=== PATIENT | male | born 1980 | race Caucasian/White ===

== ENCOUNTER 2020-07-05 11:58 | Outpatient (REF) | payer OTHER, SELFPAY ==
[2020-07-05 13:38] LABS: MANUAL DIFF FLAG NO
[2020-07-05 14:00] LABS: Basophils Percent Auto 0.5 % (0-2); Hemoglobin 15.1 g/dl (14.0-18.0); Imm Gran Abs Auto 0.01 X10*3/uL (0.00-0.03); Imm Gran Pct Auto 0.3 % (0.0-0.4); Lymphocytes Absolute Auto 1.4 X10*3/uL (1.2-4.9); Lymphocytes Percent Auto 35.9 % (20-40); Mean Corpuscular HGB Conc 32.8 g/dl (31.0-36.0); Mean Corpuscular Hemoglobin 30.4 pg (27.0-33.0); Mean Corpuscular Volume 92.6 fL (80-98); Monocytes Absolute Auto 0.3 X10*3/uL (0.1-1.2); Monocytes Percent Auto 8.1 % (2-11); Neutrophils Absolute Auto 2.2 X10*3/uL (2.0-8.3); Neutrophils Percent Auto 54.2 % (45-73); Platelet Count 242 X10*3/uL (160-400); Red Blood Count 4.97 X10*6/uL (4.60-5.80)
[2020-07-05 14:09] LABS: Anion Gap 13 (12-20); Blood Urea Nitrogen 12 mg/dL (9-16); Calcium 9.5 mg/dL (8.4-10.2); Carbon Dioxide 29 mmol/L (22-29); Chloride 104 mmol/L (96-108); Estimated Glomerular Filt Rate > 60; Glucose Random 82 mg/dL (60-115); Potassium 4.4 mmol/L (3.3-5.1); Sodium 142 mmol/L (135-145)
[2020-07-06 07:02] LABS: Lyme Abs Screen <0.90 index
== END 2020-07-05 11:59 | disposition home or self-care (01) ==
LOC: HO.10HDL 11:58
PROVIDERS: Visit Provider Internal Medicine
DX: R21 Rash and other nonspecific skin eruption (principal)
CPT/HCPCS: 36415; 80048; 85025; 86618

== ENCOUNTER 2022-01-21 07:31 | Outpatient (REF) | payer OTHER, SELFPAY ==
[2022-01-21 11:20] LABS: MANUAL DIFF FLAG NO
[2022-01-21 11:26] LABS: Basophils Percent Auto 0.8 % (0-2); Eosinophils Absolute Auto 0.1 X10*3/uL (0.0-0.4); Eosinophils Percent Auto 2.3 % (0-4); Hematocrit 44.1 % (42.0-52.0); Hemoglobin 14.7 g/dl (14.0-18.0); Lymphocytes Absolute Auto 1.5 X10*3/uL (1.2-4.9); Lymphocytes Percent Auto 38.6 % (20-40); Mean Corpuscular HGB Conc 33.3 g/dl (31.0-36.0); Mean Corpuscular Hemoglobin 30.6 pg (27.0-33.0); Mean Corpuscular Volume 91.9 fL (80.0-98.0); Mean Platelet Volume 11.3 fL (9.4-12.4); Monocytes Absolute Auto 0.4 X10*3/uL (0.1-1.2); Monocytes Percent Auto 9.3 % (2-11); Neutrophils Absolute Auto 1.9 x10*3/uL (2.0-8.3); Platelet Count 230 X10*3/uL (160-400)
[2022-01-21 11:56] LABS: Alanine Aminotransferase 10 U/L (0-40); Albumin Level 4.5 g/dL (3.5-5.0); Alkaline Phosphatase 47 U/L (39-117); Anion Gap 15 (12-20); Aspartate Amino Transferase 18 U/L (5-37); Bilirubin Total 0.8 mg/dL (0.0-1.0); Blood Urea Nitrogen 7 mg/dL (9-16); Calcium 9.3 mg/dL (8.4-10.2); Carbon Dioxide 26 mmol/L (22-29); Chloride 106 mmol/L (96-108); Cholesterol 170 mg/dL; Estimated Glomerular Filt Rate > 60; Glucose Fasting 85 mg/dL (60-99); HDL Cholesterol 66 mg/dL; LDL Cholesterol Calculated 90 mg/dl; Potassium 4.4 mmol/L (3.3-5.1); Sodium 143 mmol/L (135-145); Triglycerides 70 mg/dL
== END 2022-01-21 07:32 | disposition home or self-care (01) ==
LOC: HO.10HDL 07:31
PROVIDERS: Visit Provider Internal Medicine
DX: Z00.00 Encounter for general adult medical examination without abnormal findings (principal)
CPT/HCPCS: 36415; 80053; 80061; 85025

== ENCOUNTER 2023-02-03 16:52 | Emergency (ER) | payer OTHER, SELFPAY ==
[2023-02-03 16:58] VITALS: BP 111/89; PULSE 81; RESP 15; TEMP 35.9; O2SAT 100; BMI 24.9
--- NOTE | 2023-02-03 17:03 | ED_ITS ---
HPI - Extremity Injury (Upper) General Chief Complaint: Wound/Laceration Stated Complaint: L thumb laceration Time Seen by Provider: 02/03/23 19:16 Source: patient, RN notes reviewed and old records reviewed Mode of arrival: ambulatory Limitations: no limitations History of Present Illness HPI narrative: 42-year-old male presents for evaluation of a laceration to his left thumb He reports that he was carving pumpkins when he accidentally cut his left thumb with a knife He has a small laceration to the outside of his left thumb. Bleeding is controlled in triage He is not on any anticoagulation No other complaints or concerns at this time He reports that he had a physical recently and was told by his primary doctor that his tetanus is up-to-date Related Data Allergies Allergy/AdvReac Type Severity Reaction Status Date / Time bee pollen [BEE STINGS] Allergy Intermediate SWELLING Unverified 12/22/19 14:52 Review of Systems Integumentary/Breasts: Skin/Breast: Reports wounds PMFSH Social History Social History Advance Directives: No Advance Directives Information Provided: No Physical Exam Vital Signs: Vital Signs: Last Vital Signs Temp 96.7 F L 02/03/23 16:58 Pulse 81 02/03/23 16:58 Resp 15 02/03/23 16:58 BP 111/89 02/03/23 16:58 Pulse Ox 100 02/03/23 16:58 O2 Del Method Room Air 02/03/23 16:58 BMI result Body Mass Index 24.9 Skin: Other: Patient has a 2.5 cm linear full-thickness laceration to the radial side of the left thumb adjacent to the nail bed. 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 Tetanus believed to be UTD 1.5cm linear laceration noted to L thumb, distal aspect. bleeding. Will need suture repair Full HPI, ROS and PE to be performed by primary ED provider. Medications Administered Discontinued Medications Generic Name Dose Route Start Last Admin Trade Name Freq PRN Reason Stop Dose Admin Lidocaine HCl 5 ml 02/03/23 19:24 02/03/23 19:31 Lidocaine Hcl 1 % Mpf 5 Ml Vial INFILTRATI 02/03/23 19:25 5 ml ONCE ONE Administration Medical Decision Making Medical Decision Making MDM Narrative: 42-year-old male presents for evaluation left some laceration. See procedure note. Differential Diagnosis Differential Diagnoses: The differential diagnosis associated with the presentation includes Laceration Skin tear Puncture wound Acute wound Procedures Laceration Laceration 1: Site: hand (Left thumb) Side (If applicable): left Size (cm): 2.5 Description: linear Depth: simple, single layer Local Anesthetic: lidocaine 1% (Digital block) Amount of anesthesia used (mL): 5 Skin layer closed with: nylon Size (cm): 5-0 Number of sutures: 4 Technique: simple, interrupted Discharge Plan Discharge Clinical Impression: Laceration of left thumb Patient Disposition: Home, Self-Care Instructions: Finger Laceration (ED) Additional Instructions: You had 4 sutures placed today. These can be removed in 7-10 days Keep the area clean and dry You may apply topical antibiotic
[2023-02-03] MEDS: Lidocaine HCl 1 % MPF 5 ML VIAL INFILTRATI (19:31)
== END 2023-02-03 20:18 | disposition home or self-care (01) ==
PROVIDERS: Emergency Provider Student in an Organized Health Care Education/Training Program; PCP Internal Medicine
DX: S61.012A Laceration without foreign body of left thumb without damage to nail, initial encounter (principal); W26.0XXA Contact with knife, initial encounter; Y93.89 Activity, other specified; Y92.9 Unspecified place or not applicable; Y99.9 Unspecified external cause status
CPT/HCPCS: 12001; 99282; 99284

== ENCOUNTER 2023-07-23 11:45 | Outpatient (REF) | payer OTHER, SELFPAY ==
[2023-07-24 10:34] LABS: Lyme Abs Screen <0.90 index
== END 2023-07-23 11:46 | disposition home or self-care (01) ==
LOC: HO.10HDL 11:45
PROVIDERS: Visit Provider Internal Medicine
DX: T14.8XXD Other injury of unspecified body region, subsequent encounter (principal); W57.XXXD Bitten or stung by nonvenomous insect and other nonvenomous arthropods, subsequent encounter
CPT/HCPCS: 36415; 86617; 86618

== ENCOUNTER 2024-01-15 06:48 | Outpatient (REF) | payer BC, SELFPAY ==
[2024-01-15 07:03] LABS: MANUAL DIFF FLAG NO
[2024-01-15 07:36] LABS: Basophils Percent Auto 0.7 % (0-2); Eosinophils Absolute Auto 0.1 X10*3/uL (0.0-0.4); Eosinophils Percent Auto 2.4 % (0-4); Hematocrit 44.3 % (42.0-52.0); Hemoglobin 15.2 g/dl (14.0-18.0); Imm Gran Abs Auto 0.01 X10*3/uL (0.00-0.03); Imm Gran Pct Auto 0.2 % (0.0-0.4); Lymphocytes Absolute Auto 1.9 X10*3/uL (1.2-4.9); Lymphocytes Percent Auto 40.9 % (20-40); Mean Corpuscular HGB Conc 34.3 g/dl (31.0-36.0); Mean Corpuscular Hemoglobin 31.3 pg (27.0-33.0); Mean Corpuscular Volume 91.3 fL (80.0-98.0); Mean Platelet Volume 10.6 fL (9.4-12.4); Monocytes Absolute Auto 0.4 X10*3/uL (0.1-1.2); Monocytes Percent Auto 9.2 % (2-11); Neutrophils Absolute Auto 2.1 x10*3/uL (2.0-8.3); Neutrophils Percent Auto 46.6 % (45-73); Platelet Count 214 X10*3/uL (160-400); Red Blood Count 4.85 X10*6/uL (4.60-5.80); Red Cell Distribution Width 12.2 % (11.0-16.0); White Blood Count 4.6 X10*3/uL (4.8-10.8)
[2024-01-15 08:15] LABS: Alanine Aminotransferase 20 U/L (0-40); Albumin Level 4.6 g/dL (3.5-5.0); Alkaline Phosphatase 52 U/L (39-117); Anion Gap 10 (12-20); Aspartate Amino Transferase 20 U/L (5-37); Bilirubin Total 0.6 mg/dL (0.0-1.0); Blood Urea Nitrogen 9 mg/dL (9-16); Calcium 9.7 mg/dL (8.4-10.2); Carbon Dioxide 26 mmol/L (22-29); Chloride 108 mmol/L (96-108); Cholesterol 168 mg/dL (<200); Estimated Glomerular Filt Rate > 60; Glucose Fasting 89 mg/dL (60-99); HDL Cholesterol 63 mg/dL (>40); LDL Cholesterol Calculated 93 mg/dL (<100); Potassium 4.1 mmol/L (3.3-5.1); Sodium 140 mmol/L (135-145); Total Protein 7.2 g/dL (6.5-8.0); Triglycerides 60 mg/dL (<150)
== END 2024-01-15 06:49 | disposition home or self-care (01) ==
LOC: HO.LAB 06:48
PROVIDERS: PCP Internal Medicine; Visit Provider Internal Medicine
DX: Z00.00 Encounter for general adult medical examination without abnormal findings (principal)
CPT/HCPCS: 36415; 80053; 80061; 85025

== ENCOUNTER 2024-07-21 13:48 | Outpatient (AMB) | payer BC, SELFPAY ==
--- NOTE | 2024-07-21 13:55 | MHC.PC.OV ---
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 Last seen by PCP in Jan for CPE Presents today with knee pain. Left knee pain. Started in May after a day of snowboarding. Running or golfing increases the pain. When its in extension he is prone to feeling the pain on mistep. Hurts with eversion. Has taken ibuprofen with little help. ROS see HPI PHYSICAL EXAM: GENERAL: Alert and oriented x 3. NAD EYES: EOMI. Anicteric. HENT: Moist mucous membranes. No scleral icterus. No cervical lymphadenopathy. LUNGS: Clear to auscultation bilaterally. CARDIOVASCULAR: Regular rate and rhythm. No murmur. No JVD. ABDOMEN: Soft, non-tender +bs EXTREMITIES: No edema. Non-tender. MSK: Left knee normal appearance, no crepitus. Pain medial knee with foot eversion SKIN: No rashes or lesions. Warm. NEUROLOGIC: No focal neurological deficits. CN II-XII grossly intact PSYCHIATRIC: Cooperative. Appropriate mood and affect [facility] Family History Father No problems noted. Mother No problems noted. Social History Housing: House Alcohol intake: current Alcohol intake frequency: a few times a week Patient Tobacco Use Status: Never used Tobacco service: No Current occupational status: employed Cognitive needs: No Hearing needs: No Vision needs: Yes (rx glasses) Questionnaire PHQ-9 Over the last 2 weeks, how often have you been bothered by any of the following problems? 1. Little interest or pleasure in doing things: not at all 2. Feeling down, depressed, or hopeless: not at all 3. Trouble falling or staying asleep, or sleeping too much: not at all 4. Feeling tired or having little energy: not at all 5. Poor appetite or overeating: not at all 6. Feeling bad about yourself - or that you are a failure or have let yourself or your family down: not at all 7. Trouble concentrating on things, such as reading the newspaper or watching television: not at all 8. Moving or speaking so slowly that other people could have noticed. Or the opposite - being so fidgety or restless that you have been moving around a lot more than usual: not at all 9. Thoughts that you would be better off or of hurting yourself in some way: not at all Total score: 0 Source: Developed by Drs. Burak Tena, Rose Bentley, Stefano Escamilla and colleagues, with an educational amanda from [employer]. Thrive Questionnaire Date Thrive assessed: 07/21/24 I am a: Patient What is your living situation today?: I have a steady place to live Within the past 12 months, did the food you bought not last and you didn't have the money to get more?: Never true Within the past 12 months, did you worry whether your food would run out before you got money to buy more?: Never true Do you have trouble paying for medicines?: No Do you have trouble getting transportation to medical appointments?: No Do you have trouble paying your heating and electricity bill?: No Do you have trouble taking care of your child, family member or friend?: No Do you have trouble with day-to-day activities such as bathing, preparing meals, shopping, managing finances, etc.?: No Are you currently unemployed and looking for a job?: No Are you interested in more education?: No Please select the resources that you would like help with: None THRIVE Score: 0 AUDIT C Alcohol Use Questionnaire (AUDIT-C) 1. How often do you have a drink containing alcohol?: 2-3 times a week 2. How many drinks containing alcohol do you have on a typical day when you are drinking?: 1 or 2 3. How often do you have six or more drinks on one occasion?: Never Total Score: 3 DREA-7 AMB Questionnaire DREA-7 Date DREA - 7 assessed: 07/21/24 Feeling nervous, anxious, or on edge: 0 = Not at all Not being able to stop or control worryin = Not at all Worrying too much about different things: 0 = Not at all Trouble relaxin = Not at all Being so restless that it is hard to sit still: 0 = Not at all Becoming easily annoyed or irritable: 0 = Not at all Feeling afraid as if something awful might happen: 0 = Not at all Total DREA-7 score (0-4 normal; 5-9 mild; 10-14 moderate; 15-21 severe): 0 Source: Developed by Drs. Burak Tena, Rose Bentley, Stefano Escamilla and colleagues, with an educational amanda from [employer]. Physical exam (Primary Care) Vital Signs: Last Vital Signs Temp 97.7 F 07/21/24 13:58 Pulse 84 07/21/24 13:58 Resp 14 07/21/24 13:58 BP 122/68 07/21/24 13:58 Pulse Ox 99 07/21/24 13:58 Oxygen Delivery Method Room Air 07/21/24 13:58 BMI result Body Mass Index 24.2 Tobacco/Smoking Status: Tobacco use Status Tobacco use date assessed 07/21/24 07/21/24 13:58 Patient Tobacco Use Status Never used Tobacco 07/21/24 14:02 PHQ-9: PHQ-9 Score PHQ-9: Total score 0 07/21/24 14:11 Thrive Assessment: Date of Thrive Assessment Date Thrive assessed 07/21/24 07/21/24 13:58 Coding Level of Care Code New Pt Level 3 (68362) Diagnoses Acute pain of left knee M25.562 Chronicity: acute Assessment & Plan Assessment & Plan (1) Left knee pain: Code(s): M25.562 - Pain in left knee Category: Medical Qualifiers: Chronicity: acute Qualified Code(s): M25.562 - Pain in left knee Plan Concern for MCL tear XR ordered referral to PT orthopedics. OTC analgesics prn Orders: Orders XR knee LT 2V 07/21/24 M25.562 - Pain in left knee XR knee LT 3V 07/21/24 M25.562 - Pain in left knee PT Evaluation and Treatment 07/21/24 M25.562 - Pain in left knee Referrals Orthopedics Referral M25.562 - Pain in left knee
[2024-07-21 13:58] VITALS: BP 122/68; PULSE 84; RESP 14; TEMP 36.5; O2SAT 99; BMI 24.2
== END 2024-07-21 14:20 | disposition home or self-care (01) ==
LOC: HO.HMCHD 13:49
PROVIDERS: PCP Internal Medicine; Visit Provider Internal Medicine
DX: M25.562 Pain in left knee (principal)

== ENCOUNTER 2024-07-21 13:48 | Outpatient (REF) | payer BC, SELFPAY ==
--- NOTE | ~2024-07-21 | XR_ITS ---
CLINICAL HISTORY: M25.562 - Pain in left knee 3 view left knee Comparison: None Findings: Bones intact. No dislocations. No significant loss of joint space, osteophytes, or erosions. No joint effusion. No radiopaque foreign body. IMPRESSION: 1. No acute findings. This document has been electronically signed by: Shaheed Gresham MD on 07/23/2024 08:52:08
== END 2024-07-21 13:49 | disposition home or self-care (01) ==
LOC: HO.XRAY 13:48
PROVIDERS: PCP Internal Medicine; Visit Provider Internal Medicine
DX: M25.562 Pain in left knee (principal)
CPT/HCPCS: 73562

== ENCOUNTER → 2024-07-21 14:26 | Outpatient (BNV) | payer BC, SELFPAY | PROVIDERS: PCP Internal Medicine; Visit Provider Specialist | DX: M25.562 Pain in left knee (principal) | CPT/HCPCS: 73562 ==

== ENCOUNTER 2024-09-05 08:33 | Outpatient (REF) | payer BC, SELFPAY ==
--- NOTE | ~2024-09-05 | XR_ITS ---
EXAMINATION: XR KNEE AP STANDING CLINICAL INFORMATION: M25.562 - Pain in left knee COMPARISON: Left knee July 21, 2024 TECHNIQUE: AP bilateral standing view of the knees was obtained. FINDINGS: Left knee: Faint amorphous calcification is present in the joint line, more evident in the lateral compartment than medial compartment. There is subtle narrowing in the medial joint space. There are small marginal osteophytes along the medial joint line and the intercondylar tubercles are peaked. Similar to the prior. Right knee: There is faint amorphous calcification along the joint line, more evident in the lateral compartment. Small marginal osteophytes are present involving the medial tibial plateau. Intracondylar tubercles are peaked. Linear high density along the lateral metadiaphysis of the tibia is consistent with a linear type of bone island. XR/XR knee standing BI IMPRESSION: There are changes consistent with pyrophosphate deposition which can be related to CPPD arthropathy, hemochromatosis, and hyperparathyroidism. 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 Examination is limited to an AP view only without a lateral view. Electronically signed by: Cesar Alvarez MD 09/05/2024 11:32 AM EDT
== END 2024-09-05 08:34 | disposition home or self-care (01) ==
LOC: HO.HOSX 08:33
PROVIDERS: Visit Provider Physician Assistant
DX: M25.562 Pain in left knee (principal)
CPT/HCPCS: 73565

== ENCOUNTER 2024-09-05 08:55 | Outpatient (AMB) | payer BC, SELFPAY ==
--- NOTE | 2024-09-05 09:06 | A.OFFVIS_ITS ---
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 Patient reports ongoing pain for about 3 - 4 months. He states that his pain started back in May after a day of snowboarding. Also, Running and golfing which has been increasing his pain. When his knee is in extension he notice his pain worsen. He states that his pain is stable today, his pain is worse when he is running. Patient has taken ibuprofen with relief. IMPRESSION: 1. No acute findings. 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 Cooper is a 43 year old male who presents today as a new patient for a evaluation of his left knee pain. Patient reports ongoing pain for about 3 - 4 months. He states that his pain started back in May after snowboarding. He reports that the pain is located along the anterior aspect of the knee. He reports an increase in pain with twisting. This illicits a sharp pain and then after a while the pain diminishes. Running and golfing increases his pain. He also notes that with full extension of the knee his pain worsens. Patient has taken ibuprofen with relief. [facility] Family History Father No problems noted. Mother No problems noted. 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 No ecchymosis, erythema, or joint effusion. No tenderness to palpation along the medial or lateral joint lines. Full knee extension and flexion. Positive Vani's anterior lateral. Negative anterior drawer. NVI. Assessment & Plan Assessment & Plan (1) Left anterior knee pain: Code(s): M25.562 - Pain in left knee Category: Medical (2) Internal derangement of left knee: Code(s): M23.92 - Unspecified internal derangement of left knee Category: Medical Plan Mr. Cooper is a 43 year old male who presents today as a new patient for a evaluation of his left knee pain. Patient reports ongoing pain for about 3 - 4 months. He states that his pain started back in May after snowboarding. He reports that the pain is located along the anterior aspect of the knee. He reports an increase in pain with twisting. This illicits a sharp pain and then after a while the pain diminishes. Running and golfing increases his pain. He also notes that with full extension of the knee his pain worsens. Patient has taken ibuprofen with relief. While in the office today, I discussed with the patient about ordering an MRI to further evaluated the integrity of the left knee and surrounding structures. THe patient would like to move forward with this as well. HE will followup after the MRI is obtained, sooner if needed. X-rays of the left knee which were obtained while in the office today and were reviewed by me, Aileen Menendez PA-C, revealed no acute fracture or dislocation. Orders: Orders XR knee standing BI Today M25.562 - Pain in left knee MR knee LT wo con Today M25.562 - Pain in left knee Coding Level of Care Code New Pt Level 4 (65690) Diagnoses Left anterior knee pain M25.562 Internal derangement of left knee M23.92
[2024-09-05 09:23] VITALS: BMI 24.2
== END 2024-09-05 09:26 | disposition home or self-care (01) ==
LOC: HO.HOS 08:55
PROVIDERS: PCP Internal Medicine; Visit Provider Physician Assistant
DX: M25.562 Pain in left knee (principal); M23.92 Unspecified internal derangement of left knee
CPT/HCPCS: 99203

== ENCOUNTER → 2024-09-05 08:58 | Outpatient (BNV) | payer BC, SELFPAY | PROVIDERS: Visit Provider Radiology Diagnostic Radiology | DX: M17.12 Unilateral primary osteoarthritis, left knee (principal) | CPT/HCPCS: 73565 ==

== ENCOUNTER 2024-09-09 08:45 | Outpatient (REF) | payer BC, SELFPAY | END 2024-09-09 08:46 | disposition home or self-care (01) | LOC: HO.HOSX 08:45 | PROVIDERS: Visit Provider Physician Assistant | DX: Z13.89 Encounter for screening for other disorder (principal) ==

== ENCOUNTER 2024-11-09 09:53 | Outpatient (RCR) | payer BC, SELFPAY ==
--- NOTE | 2024-10-04 11:34 | MHC.PT.EP ---
[facility] [place] Office [place] Office [place] Office [address] Ann Vickers [address] [phone] F: [phone] F: [phone] F: [phone] F: [phone] Physical Therapy Plan of Care Date of Evaluation: 10/04/24 Date of Surgery: N/A Diagnosis: left anterior knee pain (RL) Assessment: pt is a 43 y/o male presenting to physical therapy w/ referring diagnosis of left anterior knee pain. His symptoms were only provoked w/ palpation to medial tibiofemoral joint line, valgus stress test, and running. I am suspicious of medial meniscal injury vs. pes anserine bursitis. Impairments include pain, decreased range of motion, decreased strength, impaired functional mobility, impaired postural awareness, and altered ambulation mechanics. pt is a good candidate for skilled PT due to age, potential remediation of impairments, typical disease/condition progression and prognosis, comorbidities, and motivation. pt would benefit from skilled PT intervention to provide a tailored strengthening and stretching exercise program, functional training, gait training, postural re-training, neuromuscular re-education, modalities as needed for pain, equipment safety demonstration. Frequency and Duration: The patient will be seen 1x/wk for 5 wks Short Term Goals: pt will be I w/ HEP to promote self-management of condition. pt will improve B ankle DF by at least 10* to reduce tibial external rotation during terminal stance phase. Skilled Nursing Goals: pt will report <2/10 L knee pain w/ running >2 miles to promote return to exercise for fitness and wellness. pt will demo symmetrical weight bearing functional squat to reduce genu valgus w/ picking up objects from the ground. Treatment Plan: Modalities to reduce pain, spasms and effusion. Manual therapy to restore motion and function. Therapeutic exercise to improve strength and flexibility. Neuromuscular re-education for posture and balance. Therapeutic activities to return to functional activities of daily living. Electronically signed by: Concha Murray PT, DPT Please sign and return to therapist. Thank you for your referral.
--- NOTE | 2024-11-23 11:32 | MHC.PT.DC ---
[facility] [place] Office [place] Office [place] Office [address] Ann Vickers 140 [facility] [phone] F: [phone] F: [phone] F: [phone] F: [phone] Physical Therapy Discharge Report Diagnosis: left anterior knee pain (RL) Date of Surgery: N/A Date of Evaluation: 10/04/24 Date of Discharge: 11/23/24 Treatments to Date: 8 Cancellations to Date: 0 No Shows to Date: 0 Discharge Status: Improved Function Independent with HEP Discharge Summary: The patient overall is reporting some improvement in knee pain. He is still limited with longer distance running. His pain does seem to plateau throughout his run and dissipates shortly after he stops to rest. At this time, he would like to pursue an MRI so we spent today reviewing his home exercise program. I reinforced the importance of sticking with these exercises if he wishes to remain active with running. He is discharged at this time. Electronically signed by: Concha Murray PT, DPT Please sign and return to therapist. Thank you for your referral.
== END 2024-11-23 11:33 | disposition home or self-care (01) ==
LOC: HO.PT 09:53
PROVIDERS: PCP Internal Medicine; Visit Provider Physician Assistant
DX: M23.92 Unspecified internal derangement of left knee (principal); M25.562 Pain in left knee
CPT/HCPCS: 97110; 97112; 97140; 97161; 97530

== ENCOUNTER 2024-12-22 10:15 | Outpatient (AMB) | payer BC, SELFPAY ==
--- NOTE | 2024-12-22 13:17 | MHC.OFFVIS ---
Intake Visit Reasons: OV left knee pain, possible MCL injury re-eval Intake Note: Patient presents to the office today for follow up of left knee pain. He has been attending physical therapy. Although, his pain has begun to subside some with physical therapy he continues to have some mechanical difficulties. Allergies bee pollen (BEE STINGS) Allergy (Intermediate, Verified 09/05/24 09:09) SWELLING HPI HPI OV left knee pain, possible MCL injury re-eval: Details: Patient presents to the office today for follow up of left knee pain. He has been attending physical therapy. Although, his pain has begun to subside some with physical therapy he continues to have some mechanical difficulties. [facility] Family History Father No problems noted. Mother No problems noted. 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 No ecchymosis, erythema, or joint effusion. No tenderness to palpation along the medial or lateral joint lines. Full knee extension and flexion. Positive Vani's anterior lateral. Negative anterior drawer. NVI. Assessment & Plan Assessment & Plan (1) Internal derangement of left knee: Code(s): M23.92 - Unspecified internal derangement of left knee Category: Medical Plan Patient presents to the office today for follow up of left knee pain. He has been attending physical therapy. Although, his pain has begun to subside some with physical therapy he continues to have some mechanical difficulties. While in the office today, we discussed the role of MRI imaging to be with the integrity of the knee and surrounding structures. The patient is amenable to this plan. Therefore, an MRI has been ordered. He will follow up with me after the MRIs obtained, sooner if needed. Orders: Orders MR knee LT wo con Today M23.92 - Unspecified internal derangement of left knee Coding Level of Care Code Est Pt Level 3 (95139) Diagnoses Internal derangement of left knee M23.92
== END 2024-12-22 12:33 | disposition home or self-care (01) ==
LOC: HO.HOS 10:15
PROVIDERS: PCP Internal Medicine; Visit Provider Physician Assistant
DX: M23.92 Unspecified internal derangement of left knee (principal)
CPT/HCPCS: 99213

== ENCOUNTER 2025-01-06 08:24 | Outpatient (AMB) | payer BC, SELFPAY ==
[2025-01-06 08:11] VITALS: BP 120/74; PULSE 68; TEMP 36.3; O2SAT 99; BMI 25.1
--- NOTE | 2025-01-06 08:11 | MHC.PC.OV ---
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 Accompanied by: Self / Same As Patient Allergies bee pollen (BEE STINGS) Allergy (Intermediate, Verified 01/06/25 08:11) SWELLING Medication List - Last Reconciled 01/06/25 by DEBRA Suarez No Known Home Meds Tobacco use date assessed: 01/06/25 Dental Screening Dental Screen Date: 01/06/25 Did you have a dental visit in the last 12 months?: Yes Did you have a dental problem in the last 6 months where you did not have access to dental care?: No HPI HPI Comments History of Present Illness Details 44-year-old male without any significant past medical history presents to the office today for annual physical exam. Lives in [place] with and two children. 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 Social alcohol. No cigarettes. No drugs including MJ. Exercises at the [facility] with cardio and weights. Healthy diet overall. Left knee pain-has been following with Orthopedic surgery. MRI is pending. He did complete physical therapy but did not have full resolution of symptoms. Concerns: None Health maintenance: Colonoscopy starting at age 45 Eye exam is [id number]-[id number]-check to be eye care Dental exams twice yearly Wear sunscreen Reviewed past medical, surgical, family, social history. ROS: General: No fevers, malaise, unintentional weight loss HEENT: No blurred vision, diplopia. No sore throat, nasal congestion, rhinorrhea, sinus pain, ear pain. No hearing loss Neck - no adenopathy Cardiovascular: No chest pain, palpitations, or leg edema Respiratory: No shortness of breath, wheezing, cough Breast: No pain, palpable lumps, nipple inversion GI: No dysphagia, odynophagia, globus sensation. No abdominal pain, nausea, vomiting, diarrhea, constipation, melena, hematochezia : No dysuria, hematuria, increased urinary frequency, decreased urinary output. 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 No AH/VH. No SI/HI Skin: No rashes or lesions EXAM: Constitutional - Awake and Alert, No apparent distress Eyes - PERRLA, EOMI. Anicteric Ears - external ears normal, canals clear, TMs intact and pearly jones with good cone of light Nose- septum midline, nares clear, no sinus tenderness Mouth/throat- mucosa moist, tongue and uvula midline, no erythema/edema or tonsillar adenopathy. Neck-trachea midline, thyroid symmetric without palpable nodules, no adenopathy Cardiovascular - S1S2, RRR, No edema Respiratory - Normal lung expansion, Normal respiratory effort, No respiratory distress, CTA bilaterally Gastrointestinal - NT / ND; +BS; No rebound or guarding - No CVA tenderness Extremities - no calf tenderness bilaterally, no swelling Musculoskeletal - Normal inspection, normal ROM Skin - Warm/Dry, no concerning lesions Neurological - Alert & oriented x3, CN II-XII in tact, 5/5 strength BUE and BLE, 2+ patellar reflexes, sensation intact Psychological - Appropriate affect PFSH Medical History (Updated 01/06/25 @ 08:50 by DEBRA Suarez) No pertinent past medical history Surgical History (Updated 01/06/25 @ 08:41 by DEBRA Suarez) S/P excision of varicocele Family History (Updated 01/06/25 @ 08:55 by DEBRA Suarez) Father No problems noted. Mother No problems noted. 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 1. Little interest or pleasure in doing things: not at all 2. Feeling down, depressed, or hopeless: not at all 3. Trouble falling or staying asleep, or sleeping too much: not at all 4. Feeling tired or having little energy: not at all 5. Poor appetite or overeating: not at all 6. Feeling bad about yourself - or that you are a failure or have let yourself or your family down: not at all 7. Trouble concentrating on things, such as reading the newspaper or watching television: not at all 8. Moving or speaking so slowly that other people could have noticed. Or the opposite - being so fidgety or restless that you have been moving around a lot more than usual: not at all 9. Thoughts that you would be better off or of hurting yourself in some way: not at all Total score: 0 Source: Developed by Drs. Burak Tena, Rose Bentley, Stefano Escamilla and colleagues, with an educational amanda from [employer]. Thrive Questionnaire Date Thrive assessed: 01/06/25 I am a: Patient Within the past 12 months, did the food you bought not last and you didn't have the money to get more?: Never true Within the past 12 months, did you worry whether your food would run out before you got money to buy more?: Never true Do you have trouble paying for medicines?: No Do you have trouble getting transportation to medical appointments?: No Do you have trouble paying your heating and electricity bill?: No Do you have trouble taking care of your child, family member or friend?: No Do you have trouble with day-to-day activities such as bathing, preparing meals, shopping, managing finances, etc.?: No Are you currently unemployed and looking for a job?: No Are you interested in more education?: No THRIVE Score: 0 AUDIT C Alcohol Use Questionnaire (AUDIT-C) 1. How often do you have a drink containing alcohol?: Monthly or less 2. How many drinks containing alcohol do you have on a typical day when you are drinking?: 1 or 2 3. How often do you have six or more drinks on one occasion?: Less than monthly Total Score: 2 DREA-7 AMB Questionnaire DREA-7 Date DREA - 7 assessed: 01/06/25 Feeling nervous, anxious, or on edge: 0 = Not at all Not being able to stop or control worryin = Not at all Worrying too much about different things: 0 = Not at all Trouble relaxin = Not at all Being so restless that it is hard to sit still: 0 = Not at all Becoming easily annoyed or irritable: 0 = Not at all Feeling afraid as if something awful might happen: 0 = Not at all Total DREA-7 score (0-4 normal; 5-9 mild; 10-14 moderate; 15-21 severe): 0 Source: Developed by Drs. Burak Tena, Rose Bentley, Stfeano Escamilla and colleagues, with an educational amanda from [employer]. Physical exam (Primary Care) Vital Signs: Last Vital Signs Temp 97.3 F 01/06/25 08:11 Pulse 68 01/06/25 08:11 BP 120/74 01/06/25 08:11 Pulse Ox 99 01/06/25 08:11 Oxygen Delivery Method Room Air 01/06/25 08:11 BMI result Body Mass Index 25.1 Tobacco/Smoking Status: Tobacco use Status Tobacco use date assessed 01/06/25 01/06/25 08:12 Patient Tobacco Use Status Never used Tobacco 01/06/25 08:12 e-Cigarette/Vaping Use Never Used 01/06/25 08:12 PHQ-9: PHQ-9 Score PHQ-9: Total score 0 01/06/25 08:37 Thrive Assessment: Date of Thrive Assessment Date Thrive assessed 01/06/25 01/06/25 08:12 Coding Level of Care Code Est Pt Prev Care 40-64y(73718) Diagnoses Routine medical exam Z00.00 Assessment & Plan Assessment & Plan (1) Routine medical exam: Code(s): Z00.00 - Encounter for general adult medical examination without abnormal findings Category: Medical Plan: 44-year-old male presenting for annual physical exam. Plan as below Plan Continue following with Orthopedic surgery for pain. Routine screening labs as ordered below Continue with screening colonoscopies and PSA Continue following for annual skin exams and use sun protection Annual eye exams Wear seat belt in car Recommend regular exercise and healthy diet Follow up in 1 year for physical Orders: Orders Lipid Panel Today Z00.00 - Encounter for general adult medical examination without abnormal findings Liver Panel Today Z00.00 - Encounter for general adult medical examination without abnormal findings Basic Metabolic Panel Today Z00.00 - Encounter for general adult medical examination without abnormal findings
== END 2025-01-06 08:54 | disposition home or self-care (01) ==
LOC: HO.HMCHD 08:24
PROVIDERS: PCP Internal Medicine; Visit Provider Physician Assistant
DX: Z00.00 Encounter for general adult medical examination without abnormal findings (principal)

== ENCOUNTER 2025-01-06 09:09 | Outpatient (REF) | payer BC, SELFPAY ==
[2025-01-06 10:59] LABS: Alanine Aminotransferase 27 U/L (0-40); Albumin Level 4.7 g/dL (3.5-5.0); Alkaline Phosphatase 50 U/L (39-117); Anion Gap 9 (12-20); Aspartate Amino Transferase 28 U/L (5-37); Blood Urea Nitrogen 13 mg/dL (9-16); Calcium 9.5 mg/dL (8.4-10.2); Carbon Dioxide 27 mmol/L (22-29); Chloride 107 mmol/L (96-108); Cholesterol 162 mg/dL (<200); Estimated Glomerular Filt Rate > 60; HDL Cholesterol 63 mg/dL (>40); Potassium 4.3 mmol/L (3.3-5.1); Sodium 139 mmol/L (135-145); Total Protein 6.8 g/dL (6.5-8.0); Triglycerides 92 mg/dL (<150)
== END 2025-01-06 09:10 | disposition home or self-care (01) ==
LOC: HO.10HDL 09:09
PROVIDERS: Visit Provider Physician Assistant
DX: Z00.00 Encounter for general adult medical examination without abnormal findings (principal); Z13.6 Encounter for screening for cardiovascular disorders
CPT/HCPCS: 36415; 80048; 80061; 80076

== ENCOUNTER 2025-02-06 07:10 | Outpatient (REF) | payer BC, SELFPAY ==
--- NOTE | ~2025-02-06 | MR_ITS ---
EXAMINATION: MR KNEE WITHOUT IV CONTRAST LEFT HISTORY: M23.92 - Unspecified internal derangement of left knee COMPARISON: Correlation is made with plain films of the left knee dated 09/05/2024. TECHNIQUE: Coronal T1 and fat-suppressed proton density, sagittal proton density and fat-suppressed proton density, and axial fat suppressed T2 weighted MR images of the left knee were obtained. FINDINGS: Bone marrow: Bone marrow signal intensity is normal. Joint effusion: There is a tiny joint effusion. Arevalo's cyst: There is no Arevalo's cyst. Articular cartilage: Intact Muscles/soft tissues: The visualized muscles demonstrate normal signal intensity. Anterior cruciate ligament: Intact Posterior cruciate ligament: Intact Medial collateral ligament: Intact Lateral collateral ligament: Intact Medial meniscus: There is a horizontally oriented focus of increased signal intensity in the posterior body and posterior horn of the medial meniscus. This contacts the inferior joint surface, consistent with a tear. There is also a probable small meniscal fragment displaced beneath the body of the medial meniscus. The anterior horn is intact. Lateral meniscus: Intact Flexor mechanism: The popliteus, gastrocnemius, and hamstring tendons are intact. Quadriceps tendon: Intact Patellar tendon: Intact Patellar retinacula: Intact MR/MR knee LT wo con IMPRESSION: Horizontal tear of the posterior body and posterior horn of the medial meniscus. Probable small meniscal fragment displaced beneath the body of the medial meniscus. Electronically signed by: Burak Nagel MD 02/06/2025 08:00 AM [facility]
== END 2025-02-06 07:11 | disposition home or self-care (01) ==
LOC: HO.MRI 07:10
PROVIDERS: PCP Internal Medicine; Visit Provider Physician Assistant
DX: M23.92 Unspecified internal derangement of left knee (principal)
CPT/HCPCS: 73721

== ENCOUNTER → 2025-02-06 07:10 | Outpatient (BNV) | payer BC, SELFPAY | PROVIDERS: PCP Internal Medicine; Visit Provider Radiology Diagnostic Radiology | DX: S83.242A Other tear of medial meniscus, current injury, left knee, initial encounter (principal) | CPT/HCPCS: 73721 ==

== ENCOUNTER 2025-03-21 08:51 | Outpatient (AMB) | payer BC, SELFPAY ==
--- NOTE | 2025-03-21 09:39 | A.OFFVIS_ITS ---
Intake Visit Reasons: OV-LT MRI review Intake Note: Jus is a 44 year old male who presents today for a MRI review of his left knee. Patient reports he is doing well, having mild pain. He notices some pressure in his knee after snow boarding. IMPRESSION: Horizontal tear of the posterior body and posterior horn of the medial meniscus. Probable small meniscal fragment displaced beneath the body of the medial meniscus. Allergies bee pollen (BEE STINGS) Allergy (Intermediate, Verified 03/21/25 09:44) SWELLING HPI Comments Details: History of Present Illness The patient is a 44 year old male presenting for follow-up of left knee discomfort. He reports that the knee feels fine with routine activities such as walking and running, but he notices a sensation of excess pressure on the knee while snowboarding. The discomfort is located deep inside the medial aspect of the knee and is not characterized as a sharp, shooting pain. The initial injury was caused by a twisting motion while snowboarding in May of 2024, and he remains concerned about similar movements, such as stopping or turning suddenly. Shortly after the injury, he experienced a buckling sensation while running. He denies any episodes of knee locking. Pain Description - Location: Deep inside the medial aspect of the knee. - Quality: Described not as a sharp pain, but as a sensation of a load on the joint. - Exacerbating Factors: Snowboarding and concern about potential twisting, stopping, or turning movements. - Associated Symptoms: History of a buckling sensation while running after the initial injury. Results [facility] Medical History (Updated 03/21/25 @ 10:28 by Aileen Menendez PA-C) No pertinent past medical history Surgical History (Updated 01/06/25 @ 08:41 by DEBRA Suarez) S/P excision of varicocele Family History (Updated 01/06/25 @ 08:55 by DEBRA Suarez) Father No problems noted. Mother No problems noted. 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 Tear Of Medial Meniscus Of Knee The patient's MRI confirms a medial meniscal tear with a possible loose fragment, consistent with his symptoms of deep knee discomfort and a sensation of pressure during activities. Surgical and non-surgical options were discussed. Given that he is not experiencing sharp pain or mechanical locking, the decision was made to proceed with conservative management. The patient was advised to monitor for symptoms, particularly the onset of knee locking and/or pain, which would necessitate further intervention. If he chooses surgery in the future, it would be an knee arthroscopy with partial meniscectomy. 2. Arthritis Of Knee The patient has some arthritis on the medial side of his knee, noted on his MRI. This was discussed in the context of it potentially causing an inflammatory flare-up with increased pain for a few weeks if he were to undergo surgery. No specific management for the arthritis was initiated at this visit. A detailed discussion was held with the patient regarding the management options for his medial meniscal tear. The alternatives of conservative management versus surgical intervention (arthroscopic partial meniscectomy) were reviewed. The goal of surgery would be to alleviate sharp pain with twisting motions. A potential risk of surgery discussed was a post-operative arthritic flare-up, which could cause temporary excess pain and inflammation. The patient understood the options and chose to defer surgery at this time in favor of continued observation as he is not experiencing any symptoms that limit his activities at this time. Patient was informed and verbally consented to the use of an ambient scribe for clinic note documentation during this visit. MRI of the left knee obtained on 02/06/2025: Joint effusion: There is a tiny joint effusion. Medial meniscus: There is a horizontally oriented focus of increased signal intensity in the posterior body and posterior horn of the medial meniscus. This contacts the inferior joint surface, consistent with a tear. There is also a probable small meniscal fragment displaced beneath the body of the medial meniscus. The anterior horn is intact. Lateral meniscus: Intact Coding Level of Care Code Est Pt Level 4 (27350) Add On Problem Visit Only Diagnoses Tear of medial meniscus of left knee S83.242A Osteoarthritis of left knee M17.12
== END 2025-03-21 09:50 | disposition home or self-care (01) ==
LOC: HO.HOS 08:52
PROVIDERS: PCP Internal Medicine; Visit Provider Physician Assistant
DX: S83.242A Other tear of medial meniscus, current injury, left knee, initial encounter (principal); M17.12 Unilateral primary osteoarthritis, left knee
CPT/HCPCS: 99214